=== PATIENT | female | born 2000 | race African-American/Black ===

== ENCOUNTER 2020-02-09 01:02 | Inpatient (IN) | payer MEDICAID ==
[~2020-02-09] VITALS: Ht 154.9 cm; Wt 154.4 kg
[2020-02-09] MEDS ORDERED: HALOPERIDOL 5 MG TABLET PO PRN (04:00)
[2020-02-09] MEDS ORDERED: ZOLPIDEM TARTRATE 10 MG TABLET PO PRN (04:00)
[2020-02-09] MEDS ORDERED: LORazepam 1 MG TABLET PO PRN (04:00)
[2020-02-09 05:06] VITALS: BP 118/68
[2020-02-09 05:23] VITALS: BP 118/68
[2020-02-09 08:27] VITALS: BP 130/74
[2020-02-09] MEDS ORDERED: ALBUTEROL SULFATE HFA 90 MCG/PUFF 8 GM INHALER IH PRN (09:45)
[2020-02-09 14:00] VITALS: BP 128/84
[2020-02-09 16:00] VITALS: BP 121/79
[2020-02-09] MEDS: PRAZOSIN HCL 5 MG CAPSULE PO SCH (20:21)
[2020-02-09] MEDS: LITHIUM CARBONATE 600 MG CAPSULE PO SCH (20:21)
[2020-02-09 20:25] VITALS: BP 120/72
[2020-02-09] MEDS: ACETAMINOPHEN 325 MG TABLET PO PRN (20:25)
[2020-02-10] MEDS: LURASIDONE HCL 60 MG TABLET PO SCH (06:53)
[2020-02-10 07:52] LABS: BASOPHILS % (AUTO) 0.6 % (0.0-2.0); EOSINOPHILS % (AUTO) 6.7 % (1.0-6.0); HEMATOCRIT 34.1 % (36-46); HEMOGLOBIN 11.1 g/dL (12.0-16.0); LYMPHOCYTES # (AUTO) 2.7 K/uL (1.0-4.8); LYMPHOCYTES % (AUTO) 39.7 % (22.0-44.0); MEAN CORPUSCULAR HEMOGLOBIN 26.6 pg (26.0-34.0); MEAN CORPUSCULAR HGB CONC 32.7 G/dL (31.0-37.0); MEAN CORPUSCULAR VOLUME 81 fL (80-100); MONOCYTES # (AUTO) 0.5 K/uL (0.1-1.0); MONOCYTES % (AUTO) 7.3 % (2.0-9.0); NEUTROPHILS # (AUTO) 3.1 K/uL (1.8-7.7); NEUTROPHILS % (AUTO) 45.7 % (40.0-70.0); PLATELET COUNT (AUTO) 377 K/uL (150-450); RED BLOOD CELL COUNT(AUTO) 4.19 MIL/uL (4.00-5.20); RED CELL DISTRIBUTION WIDTH 14.9 % (11.5-14.5)
[2020-02-10 07:55] LABS: LITHIUM 0.62 mmol/L (0.60-1.20)
[2020-02-10 08:00] VITALS: BP 118/80
[2020-02-10 08:08] LABS: HEMOGLOBIN A1C 5.7 % (3.8-5.6)
[2020-02-10 08:18] LABS: ALANINE AMINOTRANSFERASE 20 U/L (12-78); ALBUMIN 3.2 g/dL (3.4-5.0); ALKALINE PHOSPHATASE 60 U/L (46-116); ANION GAP 10 mmol/L (8-16); ASPARTATE AMINOTRANSFERASE 15 U/L (15-37); BILIRUBIN,TOTAL 0.4 mg/dL (0.1-1.0); CALCIUM, TOTAL 9.2 mg/dL (8.8-10.5); CARBON DIOXIDE 31 mmol/L (22-29); CHLORIDE 103 mmol/L (98-107); CHOL/HDL RATIO 3.3 (3.9-5.7); CHOLESTEROL 190 mg/dL (131-200); CREATININE 0.95 mg/dL (0.60-1.30); FREE T4 (FREE THYROXINE) 0.77 ng/dL (0.76-1.46); GLOMERULAR FILTR. RATE CALC > 60 mL/min (>60); GLUCOSE,RANDOM 111 mg/dL (70-110); HCG,QUANTITATIVE < 1 mIU/mL (0-6); HDL CHOLESTEROL 58 mg/dL (40-60); LDL CHOL (CALC.) 116 mg/dL (0-130); POTASSIUM 4.6 mmol/L (3.5-5.1); SODIUM SERUM 144 mmol/L (136-145); THYROID STIMULATING HORMONE 7.46 uIU/mL (0.36-3.74); TOTAL PROTEIN, SERUM 7.3 g/dL (6.4-8.2); TRIGLYCERIDES 80 mg/dL (15-150); UREA NITROGEN, BLOOD 11 mg/dL (7-18)
[2020-02-10 16:00] VITALS: BP 110/62
[2020-02-10 17:35] VITALS: BP 150/85
[2020-02-10] MEDS: LITHIUM CARBONATE 600 MG CAPSULE PO SCH (19:59)
[2020-02-10] MEDS: PRAZOSIN HCL 5 MG CAPSULE PO SCH (19:59)
[2020-02-11] MEDS: LURASIDONE HCL 60 MG TABLET PO SCH (06:42)
[2020-02-11 08:44] VITALS: BP 113/67
[2020-02-11] MEDS: ACETAMINOPHEN 325 MG TABLET PO PRN (14:49)
[2020-02-11] MEDS ORDERED: ACETAMINOPHEN 325 MG TABLET PO PRN (16:00)
[2020-02-11] MEDS ORDERED: LOPERAMIDE HCL 2 MG CAPSULE PO PRN (16:00)
[2020-02-11] MEDS ORDERED: MAG HYDROX/AL HYDROX/SIMETH ES 30 ML SUSPENSION UDCUP PO PRN (16:00)
[2020-02-11] MEDS ORDERED: TUBERCULIN, PURIFIED PROTEIN DERIVATIVE 5 TU/0.1 ML SYRINGE ID ONE (16:00)
[2020-02-11] MEDS ORDERED: PROMETHAZINE HCL 25 MG TABLET PO PRN (16:00)
[2020-02-11] MEDS ORDERED: GuaiFENesin/D-METHORPHAN [SUGAR-FREE] 200-20MG/10 ML SYRUP UDCUP PO PRN (16:00)
[2020-02-11] MEDS ORDERED: MAGNESIUM HYDROXIDE SUSPENSION 30 ML UDCUP PO PRN (16:00)
[2020-02-11] MEDS ORDERED: HydrOXYzine PAMOATE 50 MG CAPSULE PO PRN (16:00)
[2020-02-11 16:18] VITALS: BP 135/85
[2020-02-11] MEDS: THIAMINE 100 MG TABLET PO SCH (17:30)
[2020-02-11] MEDS: LITHIUM CARBONATE 600 MG CAPSULE PO SCH (20:01)
[2020-02-11] MEDS: PRAZOSIN HCL 5 MG CAPSULE PO SCH (20:01)
[2020-02-12] MEDS: LURASIDONE HCL 60 MG TABLET PO SCH (06:49)
[2020-02-12] MEDS: THIAMINE 100 MG TABLET PO SCH ×2 (08:49→16:17)
[2020-02-12 09:00] VITALS: BP 143/82
[2020-02-12] MEDS ORDERED: MULTIVITAMINS WITH MINERALS, THERAPEUTIC TABLET PO SCH (09:00)
[2020-02-12] MEDS ORDERED: FOLIC ACID 1 MG TABLET PO SCH (09:00)
[2020-02-12 17:01] VITALS: BP 130/87
[2020-02-12 17:03] VITALS: BP 130/87
[2020-02-12] MEDS ORDERED: LURA60TA PO (18:53)
[2020-02-12] MEDS ORDERED: LITH600 PO (18:53)
[2020-02-12] MEDS ORDERED: PRAZ5 PO (18:53)
== END 2020-02-12 19:30 | disposition home or self-care (01) | DRG 885 ==
LOC: B2S 03:45 → 3EI 12:00
PROVIDERS: ADMIT Psychiatry & Neurology Psychiatry; ATTEND Psychiatry & Neurology Psychiatry
DX: F25.9 Schizoaffective disorder, unspecified (principal); Z68.44 Body mass index [BMI] 60.0-69.9, adult; R45.851 Suicidal ideations; Z91.19 Patient's noncompliance with other medical treatment and regimen; G47.30 Sleep apnea, unspecified; J45.909 Unspecified asthma, uncomplicated; Z79.899 Other long term (current) drug therapy; E66.9 Obesity, unspecified; Z88.6 Allergy status to analgesic agent
CPT/HCPCS: 83036; 84436; 84439; 84443; 94660